=== PATIENT | male | born 1995 | race American Indian/Alaskan Native ===

== ENCOUNTER 2017-08-09 00:12 | Emergency (ER) | payer SELFPAY ==
[2017-08-09 01:59] VITALS: BP 138/81
[2017-08-09] MEDS ORDERED: TETRACAINE 0.5% ONE (04:08)
[2017-08-09] MEDS ORDERED: FUL-GLO OP ONE (04:09)
[2017-08-09] MEDS ORDERED: TETRACAINE 0.5% OU ONE (05:40)
== END 2017-08-09 04:33 | disposition left against medical advice (07) ==
LOC: ED 00:12
DX: Z13.89 Encounter for screening for other disorder (principal); Z53.21 Procedure and treatment not carried out due to patient leaving prior to being seen by health care provider
CPT/HCPCS: 36415; G0480; 80320